=== PATIENT | male | born 1985 | race Two or more races ===

== ENCOUNTER 2023-07-06 03:12 | Emergency (ER) | payer OTHER ==
[~2023-07-06] VITALS: Ht 180.3 cm; Wt 86.2 kg
[2023-07-06 04:13] VITALS: BP 144/91; TEMP 98.2; O2SAT 96
== END 2023-07-06 04:13 | disposition home or self-care (01) ==
LOC: ER 03:13
DX: F10.129 Alcohol abuse with intoxication, unspecified (principal); Y90.9 Presence of alcohol in blood, level not specified